=== PATIENT | female | born 1940 | race Two or more races ===

== ENCOUNTER 2018-05-18 07:57 | Outpatient (CLI) | payer OTHER | END 2018-05-18 08:44 | disposition home or self-care (01) | LOC: LAB 07:57 | DX: D64.89 Other specified anemias (principal); E11.65 Type 2 diabetes mellitus with hyperglycemia; E03.8 Other specified hypothyroidism; E78.2 Mixed hyperlipidemia; E23.1 Drug-induced hypopituitarism; E53.8 Deficiency of other specified B group vitamins ==

== ENCOUNTER 2019-08-01 21:51 | Emergency (ER) | payer OTHER ==
[~2019-08-01] VITALS: Ht 162.6 cm; Wt 44.5 kg
[2019-08-01] MEDS ORDERED: ZOLOFT100 MG PO (22:02)
[2019-08-01] MEDS ORDERED: VITAMIN B12-FO1 EACH PO (22:04)
== END 2019-08-01 22:35 | disposition home or self-care (01) ==
LOC: ER 21:51
DX: S01.122A Laceration with foreign body of left eyelid and periocular area, initial encounter (principal); W18.09XA Striking against other object with subsequent fall, initial encounter; Y93.01 Activity, walking, marching and hiking; Y92.480 Sidewalk as the place of occurrence of the external cause; Y99.8 Other external cause status